=== PATIENT | female | born 1965 | race Caucasian/White ===

== ENCOUNTER → 2017-10-01 | Outpatient (CLI) | payer BC ==
[~2017-10-01] MED LIST: CIPR-226 PO; DCS100C PO; HYDR-34 PO; IBP600T1 PO
--- NOTE | 2017-10-01 19:53 | Diagnostic Imaging Report ---
INDICATION: Routine screening. Comparison is made with prior exam from 03/13/2016 and 10/10/2013. 2-D and 3-D bilateral screening mammography was performed. The current study was also evaluated with a Computer Aided Detection (CAD) system. FINDINGS: Both breasts remain heterogeneously dense, limiting the sensitivity of mammography. No dominant mass or malignant-appearing microcalcifications are seen. The axillae are unremarkable. IMPRESSION: No mammographic features suspicious for malignancy are identified. ACR BI-RADS Category 1: Negative. Result letter will be mailed to the patient. Note: At least 10% of breast cancer is not imaged by mammography. Dictated by: Dictated on workstation # [id number]
== END ==
LOC: RAD 13:18
PROVIDERS: ATTEND Obstetrics & Gynecology
DX: Z12.31 Encounter for screening mammogram for malignant neoplasm of breast (principal)
CPT/HCPCS: 77067

== ENCOUNTER → 2018-10-13 | Outpatient (CLI) | payer BC ==
--- NOTE | 2018-10-13 17:58 | Diagnostic Imaging Report ---
EXAMINATION: Digital mammogram bilateral screening. INDICATION: Screening. The current study was also evaluated with a Computer Aided Detection (CAD) system. 3-D tomosynthesis was also performed and reviewed. COMPARISON: This study was compared to the prior exams of 10/01/2017, 03/13/2016, and 10/10/2013. At this time, there are no current complaints. FINDINGS: The fibroglandular tissue in both breasts is heterogeneously dense. This does limit the sensitivity of this exam. Overall, there does not appear to have been any significant change when compared to the prior study. No primary or secondary sign of malignancy is noted. 3D tomographic images fail to show any sign of malignancy. IMPRESSION: There is no radiographic evidence for malignancy. ACR BI-RADS Category 1: Negative. Result letter will be mailed to the patient. Note: At least 10% of breast cancer is not imaged by mammography. Dictated by: Dictated on workstation # [id number]
== END ==
LOC: RAD 10:07
PROVIDERS: ATTEND Obstetrics & Gynecology
DX: Z12.31 Encounter for screening mammogram for malignant neoplasm of breast (principal)
CPT/HCPCS: 77067

== ENCOUNTER → 2019-10-17 | Outpatient (CLI) | payer BC ==
--- NOTE | 2019-10-17 11:22 | Diagnostic Imaging Report ---
INDICATION: Routine screening. COMPARISON: 10/13/2018 and 10/01/2017. TECHNIQUE: 2D and 3D bilateral screening mammography was performed with CAD. FINDINGS: Both breasts are heterogeneously dense, limiting the sensitivity of mammography. The parenchymal pattern is stable. No dominant mass or malignant appearing microcalcifications are seen. The axillae are unremarkable. IMPRESSION: No mammographic features suspicious for malignancy are identified. ACR BI-RADS Category 1: Negative. Result letter will be mailed to the patient. Note: At least 10% of breast cancer is not imaged by mammography. Dictated by: Dictated on workstation # [id number]
== END ==
LOC: RAD 09:14
PROVIDERS: ATTEND Obstetrics & Gynecology
DX: Z12.31 Encounter for screening mammogram for malignant neoplasm of breast (principal)
CPT/HCPCS: 77063; 77067

== ENCOUNTER → 2020-10-19 | Outpatient (CLI) | payer BC ==
--- NOTE | 2020-10-19 12:22 | Diagnostic Imaging Report ---
INDICATION: Routine screening. COMPARISON is made with prior mammograms 10/17/2019 and 10/13/2018. 2-D and 3-D bilateral screening mammography was performed with CAD. Both breasts are heterogeneously dense, limiting the sensitivity of mammography. No dominant mass or malignant-appearing microcalcifications are seen. Axillae are unremarkable. IMPRESSION: BI-RADS Category 1. No mammographic features suspicious for malignancy are identified. ACR BI-RADS Category 1: Negative. Result letter will be mailed to the patient. Note: At least 10% of breast cancer is not imaged by mammography. Dictated by: Dictated on workstation # [id number]
== END ==
LOC: RAD 10:30
PROVIDERS: ATTEND Obstetrics & Gynecology
DX: Z12.31 Encounter for screening mammogram for malignant neoplasm of breast (principal)
CPT/HCPCS: 77063; 77067

== ENCOUNTER → 2021-10-22 | Outpatient (CLI) | payer BC ==
--- NOTE | 2021-10-22 18:09 | Diagnostic Imaging Report ---
Indication: Routine screening. Comparison is made with prior mammograms 10/19/2020 and 10/17/2019. 2-D and 3-D bilateral screening mammography was performed with CAD. Both breasts are heterogeneously dense, limiting the sensitivity of mammography. The parenchymal pattern is stable. No mass or malignant-appearing microcalcifications are seen. Axillae are unremarkable. IMPRESSION: BI-RADS Category 1 No mammographic features suspicious for malignancy are identified. ACR BI-RADS Category 1: Negative. Result letter will be mailed to the patient. Note: At least 10% of breast cancer is not imaged by mammography. Dictated by: Dictated on workstation # [id number]
== END ==
LOC: RAD 10:53
PROVIDERS: ATTEND Nurse Practitioner Women's Health
DX: Z12.31 Encounter for screening mammogram for malignant neoplasm of breast (principal)
CPT/HCPCS: 77063; 77067

== ENCOUNTER 2021-11-13 05:32 | Outpatient (CLI) | payer BC ==
[~2021-11-13] VITALS: Ht 180.3 cm; Wt 86.2 kg
== END 2021-11-14 08:52 ==
LOC: PREOP 05:32
PROVIDERS: ATTEND Internal Medicine
DX: Z01.818 Encounter for other preprocedural examination (principal); Z12.11 Encounter for screening for malignant neoplasm of colon

== ENCOUNTER 2021-11-22 07:02 | Day surgery (SDC) | payer BC ==
--- NOTE | 2021-11-13 08:07 | HISTORY AND PHYSICAL ---
DATE OF SERVICE: COLONOSCOPY HISTORY AND PHYSICAL INDICATION FOR THE PROCEDURE: The patient is a 56-year-old white female referred by Dr. Duque for her first screening colonoscopy. She is deemed to be of average risk as she is not aware of any family history for colon cancer or colon polyps. She denies bright red blood per rectum, melena, abdominal pain, diarrhea, constipation or change in bowel habit. PAST MEDICAL HISTORY: Noncontributory. MEDICATIONS: She takes no medication. Reports no chronic medical problems. PAST SURGICAL HISTORY: She has had total abdominal hysterectomy for benign reasons and a . FAMILY HISTORY: Father living at the age of 74 with Alzheimer disease early per the patient's report mother living at age of 72, had aneurysms sounds like a thoracic aortic that required repair. The patient reports that she has been checked for this and has no evidence for aneurysm. SOCIAL HISTORY: She reports that she is employed, exercises on a regular basis, typically biking 14 miles most days of the week with no past smoking history and as I recall just occasional social alcohol intake. REVIEW OF SYSTEMS: CONSTITUTIONAL: Denies night sweats, chills, fever, change in weight. GASTROINTESTINAL: As noted in the HPI. PULMONARY: Denies cough, wheezing or shortness of breath. CARDIOVASCULAR: Denies orthopnea, PND, pedal edema, syncope or chest pain. PHYSICAL EXAMINATION: GENERAL: Reveals a pleasant, thin white female in no acute distress. Weight 190 pounds, blood pressure 110/76. HEENT: Unremarkable. Mallampati 2 oropharyngeal configuration. CHEST: Clear to auscultation. CARDIOVASCULAR: Reveals a regular rate and rhythm without murmur, S3 or S4. ABDOMEN: Soft, supple without mass, organomegaly or tenderness. EXTREMITIES: Reveal no cyanosis, clubbing or edema. ASSESSMENT: The patient is set up for her first screening colonoscopy, deemed to be of average risk as noted above. Prep instructions were given, and questions were answered. Job ID: [id number] DocumentID: [id number] Dictated Date: 10/25/2021 09:10:49 Development Spec Date: 10/25/2021 14:53:41 Dictated By: MEGHAN VALENCIA MD
[~2021-11-22] VITALS: Ht 180.3 cm; Wt 86.2 kg
[2021-11-22] MEDS ORDERED: LACTATED RINGERS 1,000 ML IV STA (07:05)
[2021-11-22 07:18] VITALS: BP 140/80
[2021-11-22] MEDS ORDERED: PROPOFOL INJECTION 50 ML IV ONE ×2 (07:23→08:01)
--- NOTE | 2021-11-22 07:44 | Pre-Op Note & Conscious Sedat ---
Pre-Operative Progress Note Date H&P Reviewed: Nov 22, 2021 Time H&P Reviewed: 07:40 Pre-Op Diagnosis: screening Conscious Sedation Pre-Proced ASA Score 2 For ASA 3 and 4: Consider anesthesia and medical clearance. Also, for patients with a history of failed moderate sedation consider anesthesia. Airway Lungs Heart ASA score ASA 1: a normal healthy patient ASA 2: a patient with a mild systemic disease (mid diabetes, controlled hypertension, obesity ASA 3: a patient with a severe systemic disease that limits activity (angina, COPD, prior Myocardial infarction) ASA 4: a patient with an incapacitating disease that is a constant threat to life (CHF, renal failure) ASA 5: a moribund patient not expected to survive 24 hrs. (ruptured aneurysm) ASA 6: a declared brain- patient whose organs are being harvested. For emergent operations, add the letter E after the classification Mallampati Classification Grade 2 Sedation Plan Analgesia, Amnesia, Plan communicated to team members, Discussed options with patient/fam, Discussed risks with patient/fam The patient is an appropriate candidate to undergo the planned procedure, sedation, and anesthesia. The patient immediately re-assessed prior to indication. MEGHAN VALENCIA MD Nov 22, 2021 07:44
[2021-11-22 08:20] VITALS: BP 103/52
--- NOTE | 2021-11-22 08:20 | Anesthesia-General Post-Op ---
MAC Patient Condition Mental Status/LOC: Same as Preop Cardiovascular: Satisfactory Nausea/Vomiting: Absent Respiratory: Satisfactory Pain: Controlled Complications: Absent Post Op Complications Complications None Follow Up Care/Instructions Patient Instructions None needed. Anesthesiology Discharge Order Discharge Order Patient is doing well, no complaints, stable vital signs, no apparent adverse anesthesia problems. No complications reported per nursing. ERICK ALEJANDRE CRNA Nov 22, 2021 08:20
--- NOTE | 2021-11-22 08:21 | Progress Note-Post Operative ---
Post-Procedure Note Physician (s)/Fine Arts Chair (s) Physician MEGHAN VALENCIA MD Pre-Procedure Diagnosis Pre-Procedure Diagnosis: screening Post-Procedure Diagnosis Post-operative diagnosis: normal colonoscopy MEGHAN VALENCIA MD Nov 22, 2021 08:21
[2021-11-22 08:25] VITALS: BP 110/55
[2021-11-22 08:52] VITALS: BP 110/55
--- NOTE | 2021-11-22 12:27 | OPERATIVE REPORT ---
DATE OF SERVICE: COLONOSCOPY SUMMARY INDICATION FOR THE PROCEDURE: Screening colonoscopy, family history of colon cancer. DESCRIPTION OF PROCEDURE: The patient was placed in the left lateral decubitus position. Prior to undergoing colonoscopy, digital rectal evaluation was performed. Anal sphincter tone was normal and the perianal reflexes intact. There were no abnormalities were noted on digital evaluation of the distal rectal vault or anal canal. The colonoscope was then inserted into the rectum and under direct visualization advanced to the cecum. The cecum was identified by identification of ileocecal valve and cecal strap. Photographic documentation was obtained. A careful inspection was made as colonoscope withdrawn. Quality of prep was good. FINDINGS: There was no evidence for internal or external hemorrhoids. The rectum, sigmoid colon, descending colon, splenic flexure, transverse colon, hepatic flexure, ascending colon, and cecum were unremarkable. No evidence for neoplasia or diverticular disease was noted. ASSESSMENT: Normal colonoscopy to the cecum. Considering family history, I would advocate consideration for a repeat screening colonoscopy in five years. Job ID: [id number] DocumentID: [id number] Dictated Date: 11/22/2021 08:18:37 Account Manager Education Date: 11/22/2021 12:27:03 Dictated By: MEGHAN VALENCIA MD
== END 2021-11-22 09:10 | disposition home or self-care (01) ==
LOC: ENDO 07:02
PROVIDERS: ATTEND Internal Medicine
DX: Z12.11 Encounter for screening for malignant neoplasm of colon (principal)

== ENCOUNTER → 2023-02-10 | Outpatient (CLI) | payer BC ==
--- NOTE | 2023-02-10 16:07 | Diagnostic Imaging Report ---
INDICATION: Routine screening. COMPARISON: 10/22/2021 and 10/19/2020. TECHNIQUE: 2D and 3D bilateral screening mammography was performed with CAD. FINDINGS: Both breasts are heterogeneously dense, limiting the sensitivity of mammography. The parenchymal pattern is stable. No mass or malignant-appearing microcalcifications are seen. The axillae are unremarkable. IMPRESSION: No mammographic features suspicious for malignancy are identified. ACR BI-RADS Category 1: Negative. Result letter will be mailed to the patient. Note: At least 10% of breast cancer is not imaged by mammography. Dictated by: Dictated on workstation # [id number]
== END ==
LOC: RAD 11:32
PROVIDERS: ATTEND Nurse Practitioner Women's Health
DX: Z12.31 Encounter for screening mammogram for malignant neoplasm of breast (principal)
CPT/HCPCS: 77063; 77067